=== PATIENT | female | born 1960 | race African-American/Black ===

== ENCOUNTER 2025-07-28 13:23 | Emergency (ER) | payer MEDICAID, OTHER ==
[~2025-07-28] VITALS: Ht 170.2 cm; Wt 92.2 kg
[2025-07-28 14:35] VITALS: BP 135/93; PULSE 83; RESP 16; TEMP 98.1; O2SAT 95
[2025-07-28] MEDS ORDERED: BENZ100C97 PO (14:38)
[2025-07-28] MEDS ORDERED: ACET500T58 PO (14:38)
[2025-07-28] MEDS ORDERED: IBUP-1454 PO (14:38)
[2025-07-28] MEDS ORDERED: AZIT-43 PO (14:38)
--- NOTE | 2025-07-28 14:39 | ED.PDOC ---
SOB-HPI HPI Comments 54 yr F with a history of high blood pressure, fibromyalgia, and chronic pain in the hands and lower back presents for evaluation of dizziness, generalized body aches, and facial pain. Symptoms began 1 day before this visit. The patient reports recent exposure to children who were coughing and sneezing and were subsequently taken to urgent care for similar symptoms. The patient does not report shortness of breath. Denies fevers chills night sweats unintentional weight loss Denies persistent chest pain, shortness of breath, leg swelling Denies history of asthma nor any breathing conditions Denies history of pneumonia Denies recent international travel The patient is allergic to tetracycline. The patient does not smoke, drink alcohol, or use recreational drugs. No recent surgeries. The patients primary care provider is Dr. Aldana. Chief Complaint: Flu like Time Seen by MD: 13:56 Reviewed notes: Nurses Notes, Medications, Allergies Information Source: Patient Mode of Arrival: Ambulatory Past Medical History PAST MEDICAL HISTORY: Denies Surgical History: Denies all surgeries PUBLIC TRANSPORTATION INSPECTOR History: No Pertinent PUBLIC TRANSPORTATION INSPECTOR History Family History Family History: Reviewed,noncontributory to illness Social History Smoker: Non-Smoker Alcohol: Denies ETOH Use Drugs: Denies Drug Use All Other Systems: Reviewed and Negative (per hpi) Physical Exam General Appearance: No Apparent Distress, Normal HEENT: Normal ENT Inspection, Pharynx Normal, TMs Normal Neck: Full Range of Motion, Non-Tender, Normal, Normal Inspection Respiratory: Chest Non-Tender, Lungs Clear, No Accessory Muscle Use, No Respiratory Distress, Normal Breath Sounds Cardiovascular: No Edema, No JVD, No Murmur, No Gallop, Normal Peripheral Pulses, Regular Rate/Rhythm Breast Exam: Deferred Gastrointestinal: No Organomegaly, Non Tender, No Pulsatile Mass, Normal Bowel Sounds, Soft Genitalia: Deferred Pelvic: Deferred Rectal: Deferred Extremities: No calf tenderness, Normal capillary refill, Normal inspection, Normal range of motion, Non-tender, No pedal edema Musculoskeletal : Apperance: Normal Neurologic: Alert, sole polisher II-XII nml as Tested, No Motor Deficits, Normal Affect, Normal Mood, No Sensory Deficits Cerebellar Function: Normal Reflexes: Normal Skin: Dry, Normal Color, Warm Lymphatic: No Adenopathy Was a procedure done? Was a procedure done?: No Differential Dx Differential Diagnosis: Bronchitis, Sinusitis, Allergic Rhinitis, Otitis Media, URI X-Ray, Labs, Meds, VS Vital Signs Date Time Temp Pulse Resp B/P (MAP) Pulse Ox O2 Delivery O2 Flow Rate FiO2 07/28/25 14:35 98.1 83 16 135/93 (107) 95 98.1 07/28/25 14:35 83 16 95 Room Air 07/28/25 13:25 98.1 83 16 135/93 100 98.1 X-Ray, Labs, Meds, VS Comment Likely viral or atypical bacterial etiology given recent exposure to symptomatic individuals, presence of cough, body aches, facial pain, and absence of shortness of breath. There is concern for possible pneumonia; thus, empiric antibiotic treatment initiated. - Prescribe Z Te (azithromycin) for prevention/treatment of pneumonia - Prescribe benzonatate 1 tablet three times a day as needed for cough for 10 days - Advise rest, hydration, increased intake of vitamin C, and warm fluids with honey (e.g., hot tea) The patient is overall well-appearing nontoxic on exam. On physical exam, respirations even and unlabored, clear to auscultation bilaterally. Oxygen stable on room air. Did not have any focal lung findings and therefore chest x-ray was not indicated during this exam Low suspicion of strep pharyngitis given physical exam findings and patient's presenting symptoms Overall, the patient is well hydrated and nontoxic. Plan for symptomatic control for fever and pain as needed. The patient was able to tolerate p.o. intake in the ED. at this time, patient is safe for discharge home. The exam findings and plan discussed. We will discharge home with PCP follow up and strict return precautions. Discussed that cough can linger up to 6 weeks after viral URI Supportive care and return precautions discussed Recommended vitamin C, rest, handwashing, and symptomatic care. Expect 2-week course with possibly of cough lingering up to 6 weeks. Nonpharmacological remedies for fluids has been recommended as well Follow-up/Disposition: Instructed to return immediately or call 911 if symptoms worsen. No routine follow-up scheduled; follow up as needed based on symptom progression. Time of 1ST Reevaluation: 14:36 Reevaluation 1ST: Improved Patient Education/Counseling: Diagnosis, Treatment Family Education/Counseling: Diagnosis, Treatment SEPSIS Sepsis Screen Date sepsis recognized/suspect: Jul 28, 2025 Time Sepsis recognized/suspect: 1328 Recent Procedure: No On Antibiotic Therapy: No Respiratory Rate >20: No Heart Rate >90: No Temp<36 C (96.8 F) or >38.3 C: No SBP <90 or MAP <65 mmHG: No New Acute Mental Status Change: No Is the patient on CPAP, BIPAP,: No Vital Signs Date Time Temp Pulse Resp B/P (MAP) Pulse Ox O2 Delivery O2 Flow Rate FiO2 07/28/25 14:35 98.1 83 16 135/93 (107) 95 98.1 07/28/25 14:35 83 16 95 Room Air 07/28/25 13:25 98.1 83 16 135/93 100 98.1 Departure 1 Departure Time of Disposition: 14:36 Impression: Primary Impression: Viral syndrome Disposition: HOME / SELF CARE / HOMELESS Condition: Stable e-Prescriptions Benzonatate (Benzonatate) 100 Mg Cap 1 CAP PO TID for 10 Days, #30 CAP 0 Refills Prov: MAYCOL ARRIAGA NP 07/28/25 Azithromycin (Azithromycin) 250 Mg Tab 250 MG PO DAILY MDD 500 for 5 Days, #6 TAB 0 Refills 2 TABLETS ORALLY ON DAY ONE, THEN 1 TABLET ORALLY DAILY FOR 4 DAYS Prov: MAYCOL ARRIAGA NP 07/28/25 Acetaminophen (Acetaminophen) 500 Mg Tab 500 MG PO Q6HP PRN for 10 Days, #40 TAB 0 Refills Prov: MAYCOL ARRIAGA NP 07/28/25 Ibuprofen (Ibuprofen) 600 Mg Tab 1 TAB PO TID for 10 Days, #30 TAB 0 Refills Prov: MAYCOL ARRIAGA NP 07/28/25 Discharged With: Self Critical Care Note Critical Care Time?: No Stability Stability form required: No Heart Score Heart Score: Heart Score Response (Comments) Value History N/A 0 EKG N/A 0 Age N/A 0 Risk Factors N/A 0 Troponin N/A 0 Total 0 MAYCOL ARRIAGA NP Jul 28, 2025 14:39
== END 2025-07-28 14:41 | disposition home or self-care (01) ==
LOC: ER 13:23
DX: B34.9 Viral infection, unspecified (principal); M79.18 Myalgia, other site; Z88.1 Allergy status to other antibiotic agents